=== PATIENT | male | born 1975 | race Caucasian/White ===

== ENCOUNTER 2017-02-21 18:34 | Emergency (ER) | payer MEDICARE ==
[2017-02-21 20:36] LABS: HEMOGLOBIN 16.1 gm/dl (14.0-17.5); RED BLOOD COUNT 5.4 M/UL (4.20-5.50); WHITE BLOOD COUNT 13.4 K/UL (4.5-11.0)
[2017-02-21 21:06] LABS: BUN/CREATININE RATIO 19 (0-10)
== END 2017-02-22 00:05 | disposition home or self-care (01) ==
LOC: ER1 18:34
PROVIDERS: Family Medicine
DX: R11.2 Nausea with vomiting, unspecified (principal); K21.9 Gastro-esophageal reflux disease without esophagitis; F17.210 Nicotine dependence, cigarettes, uncomplicated
CPT/HCPCS: 36415; 80053; 82150; 83690; 85025; 96361; 96374; 96375; 99284; J2060; J2270; J2405; J7120

== ENCOUNTER → 2021-08-24 | Outpatient (CLI) | payer MEDICARE ==
[~2021-08-24] MED LIST: ASPIRIN CHEWABL81 MG PO
== END ==
LOC: EXRD 14:54
DX: M25.561 Pain in right knee (principal)
CPT/HCPCS: 73564

== ENCOUNTER → 2021-09-28 | Outpatient (CLI) | payer MEDICARE | LOC: EMI 08:00 | DX: M25.561 Pain in right knee (principal) | CPT/HCPCS: 73721 ==

== ENCOUNTER 2022-04-09 23:02 | Emergency (ER) | payer BC, MEDICARE ==
[2022-04-09 23:25] LABS: HEMOGLOBIN 14.1 gm/dl (14.0-17.5); RED BLOOD COUNT 4.71 M/UL (4.20-5.50); WHITE BLOOD COUNT 12.1 K/UL (4.5-11.0)
[2022-04-09 23:49] LABS: BUN/CREATININE RATIO 19 (0-10)
== END 2022-04-10 02:35 | disposition left against medical advice (07) ==
LOC: ER1 23:02
PROVIDERS: Family Medicine
DX: R07.9 Chest pain, unspecified (principal); R20.2 Paresthesia of skin; I10 Essential (primary) hypertension
CPT/HCPCS: 71046; 80053; 82550; 82553; 84484; 85025; 93005; 99281

== ENCOUNTER → 2022-05-17 | Outpatient (CLI) | payer BC, MEDICARE | LOC: HEART 5 08:30 | DX: I20.9 Angina pectoris, unspecified (principal); I10 Essential (primary) hypertension; E78.5 Hyperlipidemia, unspecified | CPT/HCPCS: 78452; 93306; A9502 ==